=== PATIENT | female | born 1985 | race Caucasian/White ===

== ENCOUNTER → 2020-07-06 07:48 | Outpatient (CLI) | payer OTHER, SELFPAY ==
--- NOTE | ~2020-07-06 | MM_ITS ---
EXAMINATION: MM screening mily BI w vikas HISTORY: Screening mammogram TECHNIQUE: Craniocaudal and mediolateral oblique 3-D tomosynthesis images were obtained and synthetic 2-D images were generated. Bilateral rotated lateral cc views. CAD analysis was submitted and interp reted. COMPARISON: No prior mammogram is available for comparison at this institution. BREAST PARENCHYMAL COMPOSITION: The breasts are extremely dense, which lowers the sensitivity of mamm ography. FINDINGS: There is no evidence of suspicious mass, calcification, or architectural distortion to sugg est malignancy in either breast. There has been no suspicious interval change. IMPRESSION: 1. No mammographic evidence of malignancy. 2. Recommend routine screening mammography in one year. BI-RADS Category 1: Negative Reviewed, dictated and finalized at location A.
== END ==
PROVIDERS: PCP Surgery Plastic and Reconstructive Surgery; Visit Provider Nurse Practitioner Obstetrics & Gynecology
DX: Z12.31 Encounter for screening mammogram for malignant neoplasm of breast (principal)
CPT/HCPCS: 77063; 77067

== ENCOUNTER 2020-08-21 02:13 | Outpatient (CLI) | payer OTHER, SELFPAY ==
[2020-08-21 22:41] LABS: SARS-CoV-2 RNA PCR Negative
== END 2020-08-21 02:14 | disposition home or self-care (01) ==
LOC: ANHCOVIDDT 02:14
PROVIDERS: PCP Surgery Plastic and Reconstructive Surgery; Visit Provider Surgery Plastic and Reconstructive Surgery
DX: Z01.818 Encounter for other preprocedural examination (principal); Z20.828 Contact with and (suspected) exposure to other viral communicable diseases
CPT/HCPCS: 87635; C9803; U0003

== ENCOUNTER 2020-08-21 10:31 | Outpatient (CLI) | payer OTHER, SELFPAY ==
--- NOTE | 2020-08-21 10:33 | ECG_ITS ---
Measurements Intervals [place] Rate: 60 P: 33 ND: 131 QRS: 28 QRSD: 146 T: 37 QT: 441 QTc: 443 Interpretive Statements SINUS RHYTHM RIGHT BUNDLE BRANCH BLOCK BASELINE ARTIFACT- I, II, III, AVR, AVL, AVF ABNORMAL ECG Electronically Signed On 08-21-2020 11:34:59 PROJECTS MANAGER by Harjit Rosales D.O.
== END 2020-08-21 10:32 | disposition home or self-care (01) ==
LOC: ANHSURGERY 10:33
PROVIDERS: PCP Family Medicine; Visit Provider Surgery Plastic and Reconstructive Surgery
DX: Z01.818 Encounter for other preprocedural examination (principal); L57.4 Cutis laxa senilis; I45.10 Unspecified right bundle-branch block
CPT/HCPCS: 93005

== ENCOUNTER 2020-08-24 00:34 | Day surgery (SDC) | payer OTHER, SELFPAY ==
[2020-08-16 14:20] VITALS: BMI 23.4
--- NOTE | 2020-08-23 14:53 | WPDANESEPPF ---
Anes - Initial Pre Proc Eval Procedure: Operation Date: 08/24/20 12:30 Proposed Procedures p Bilateral Breast Augmentation - Ajith Woodard MD s Abdominoplasty - Ajith Woodard MD Date/Time: 08/23/20 14:53 Surgeon: Ajith Woodard MD Pre Op Diagnosis: micromastia, skin laxity Patient Data Age: 35 Gender: F Height: 5 ft 9 in Weight: 72 kg Allergies Allergy/AdvReac Type Severity Reaction Status Date / Time No Known Allergies Allergy Verified 07/18/20 15:34 Home Medications Medication Instructions Recorded Confirmed Type albuterol sulfate 90 mcg/actuation 1 inhalation INHALATION Q4H PRN #8 12/09/19 08/16/20 Rx aerosol inhaler gm carisoprodol 350 mg tablet 350 mg PO TID PRN #21 tablet 08/09/20 08/16/20 Rx docusate sodium 100 mg capsule 100 mg PO DAILY #14 cap 08/09/20 08/16/20 Rx ondansetron HCl 4 mg tablet 4 mg PO Q8H #28 tablet 08/09/20 08/16/20 Rx oxycodone-acetaminophen 5 mg-325 1 tablet PO Q6H PRN #15 tablet 08/09/20 08/16/20 Rx mg tablet PMFSH Past Medical History Medical History Depression Unspecified asthma Wellness examination Surgical History Surgical History Status post bilateral salpingectomy Family History Family History Grandparent Family history of malignant neoplasm of breast Father Diabetes mellitus Hypertension Other Cerebrovascular accident Malignant neoplasm of prostate Social History Social History Smoking status: Never smoker Second hand tobacco smoke exposure: No Alcohol intake: current Drinks per week: 7 Substance use: never Substance use type: does not use Gender identity (if verbalized by the patient): Female Spiritual care concerns: No Anes - Eval Final PreProcedure Day of Procedure 08/23/20 14:53 Informed Consent: The patient's anesthetic plan and its attendant risks and benefits were discussed with the patient/family/POA. Questions were solicited and answers provided to the satisfaction of the patient/family/POA.
[2020-08-24] VITALS (12 sets, daily range): BP systolic 110–129; BP diastolic 67–95; PULSE 67–93; RESP 14–20; TEMP 36.1–36.7; O2SAT 96–100
[2020-08-24] MEDS: LACTATED RINGERS 1,000 ML 30 ML IV CONT ×2 (11:10→16:23)
[2020-08-24 11:13] LABS: Urine Cotinine NEGATIVE
[2020-08-24 11:29] LABS: Hematocrit 41.1 % (37.0-47.0); Hemoglobin 13.8 g/dL (12.0-15.0)
--- NOTE | 2020-08-24 12:18 | WPDANESEPPF ---
Anes - Initial Pre Proc Eval Procedure: Operation Date: 08/24/20 12:30 Proposed Procedures p Bilateral Breast Augmentation - Ajith Woodard MD s Abdominoplasty - Ajith Woodard MD Date/Time: 08/24/20 12:18 Surgeon: Ajith Woodard MD Pre Op Diagnosis: micromastia, skin laxity Patient Data Age: 35 Gender: F Height: 1.75 m Weight: 73.6 kg Last Vital Signs Temp 36.7 C 08/24/20 10:44 Pulse 67 08/24/20 10:44 Resp 20 08/24/20 10:44 BP 121/67 08/24/20 10:44 Pulse Ox 98 08/24/20 10:44 Allergies Allergy/AdvReac Type Severity Reaction Status Date / Time No Known Allergies Allergy Verified 08/24/20 11:27 Home Medications Medication Instructions Recorded Confirmed Type albuterol sulfate 90 mcg/actuation 1 inhalation INHALATION Q4H PRN #8 12/09/19 08/16/20 Rx aerosol inhaler gm carisoprodol 350 mg tablet 350 mg PO TID PRN #21 tablet 08/09/20 08/16/20 Rx docusate sodium 100 mg capsule 100 mg PO DAILY #14 cap 08/09/20 08/16/20 Rx ondansetron HCl 4 mg tablet 4 mg PO Q8H #28 tablet 08/09/20 08/16/20 Rx oxycodone-acetaminophen 5 mg-325 1 tablet PO Q6H PRN #15 tablet 08/09/20 08/16/20 Rx mg tablet Laboratory Tests 08/24/20 08/24/20 10:43 10:43 Hgb 13.8 g/dL g/dL (12.0-15.0) Hct 41.1 % % (37.0-47.0) Cotinine Negative Patient hx anesthesia problems: none Family hx anesthesia problems: none PMFSH Past Medical History Medical History Depression Unspecified asthma Wellness examination Surgical History Surgical History Status post bilateral salpingectomy Family History Family History Grandparent Family history of malignant neoplasm of breast Father Diabetes mellitus Hypertension Other Cerebrovascular accident Malignant neoplasm of prostate Social History Social History Smoking status: Never smoker Second hand tobacco smoke exposure: No Alcohol intake: current Drinks per week: 7 Substance use: never Substance use type: does not use Living arrangements: with family Gender identity (if verbalized by the patient): Female Spiritual care concerns: No Anes - Eval Final PreProcedure Day of Procedure 08/24/20 12:18 Patient weight: normal Heart: regular rate and rhythm Lungs: clear to auscultation and normal air movement Airway: Mallampati scale class II Neurological: alert and oriented Last oral intake: >/= 8 hours ASA classification: II Emergent: no Anesthetic plan: proceed Anesthesia type and monitoring: general ETT and standard monitoring Informed Consent: The patient's anesthetic plan and its attendant risks and benefits were discussed with the patient/family/POA. Questions were solicited and answers provided to the satisfaction of the patient/family/POA.
--- NOTE | 2020-08-24 12:21 | WPDHPUPDATE1 ---
History and Physical Update Update Date/Time: 08/24/20 12:21 History and Physical has been reviewed, including an updated exam of the patient. There are NO changes in the patient's condition. Risks, benefits, and alternatives have been discussed and questions answered. Patient agrees to proceed with procedure.
--- NOTE | 2020-08-24 12:51 | PM.PROC ---
Procedure Note - Detailed Date of procedure: 08/24/20 Pre-op diagnosis: micromastia, skin laxity Post-op diagnosis: same Procedure performed: 1. Bilateral augmentation mammaplasty 2. Progressive tension abdominoplasty Description of procedure: She is here today for the above. Previously and again today the risks, benefits, alternatives were discussed in extensive detail. I wanted her to be very realistic about the risks involved as well as expectations. We discussed aftercare and what to monitor for. We discussed DVT/PE risks and management. Made sure answered all of her questions to her satisfaction today and consent was obtained. Marked in the preoperative holding area with their verification. The patient was taken to the operating room placed supine on the operating table. Anesthesia was provided by anesthesiology. A surgical time-out was taken. We cleansed the skin and 1% lidocaine and 0.25% Marcaine with epinephrine was used anesthetize as a field block. She was prepped and draped in a standard sterile fashion. Tegaderm nipple Au were placed. A 15 blade used to make an incision along the inframammary fold. Dissection was continued at 45 degree angle until the chest wall as identified. I incised the pectoralis major along its inferior border and completely released the inferior border leaving the medial border intact. I created a subpectoral pocket in the appropriate dimensions based on our preoperative planning for the implant. I then copiously irrigated with saline solution and verified a strict hemostasis. Next the use a triple antibiotic and Betadine containing solution to irrigate the pocket. I washed my gloves with the triple antibiotic and Betadine solution. We washed the implant immediately upon opening it with this solution and only opened it when we needed it. I used implant funnel and no-touch technique. The implant was introduced into the pocket using the funnel. Having verified positioning of the implant this was closed using 2-0 Vicryl followed by 3-0 Monocryl in a running subcuticular 4-0 Monocryl followed by tissue glue. I then proceeded with the abdominoplasty. I placed the patient in a flexed position to verify the upper and lower markings would reach. I then placed her supine. A thorough abdominal examination was completed. Stab incisions were made and used tumescent solution. A 10 blade was used to make the upper incision. I continued dissection down to the level of fascia. Elevated just what was necessary for repair of the diastasis and discontinuous undermining otherwise. I then again flexed the bed to verify the upper skin flap would reach the lower markings without tension. Once verified I placed her supine once again and a 10 blade used to make the lower incision. I elevated up to level the umbilicus and left the umbilicus intact on a well-vascularized stalk. The intervening tissue was removed. A 2 mm blunt cannula and Exparel which was mixed 20 cc in 100 cc for a total volume of 120 cc I injected deep to the fascia bilaterally as well as along the incision lines. I plicated the diastasis recti using [id number] 0 PDS followed by a V lock PDS as a 2nd layer of reinforcement. This was in 2 separate layers using 2 separate sutures as well. I repaired around the umbilicus leaving plenty of room for well-vascularized stalk of the umbilicus with 2-0 PDS. The patient was flexed and starting from superior to inferior began plication using 2-0 Vicryl to obliterate all space in a standard progressive tension fashion. At the umbilicus I marked out the location of the skin and inset this with 3-0 Monocryl and 4-0 nylon. I continued the remainder of the plication using 2-0 Vicryl until I reached my lower planned scar line. I trimmed any excess skin of the upper flap making sure this was a tension-free closure. I then approximated using a 3 point suture with 2-0 Vicryl followed by 3-0 stratafix ,running subcu
[2020-08-24] MEDS: ceFAZolin 2 GM/D5W 50 ML 2 GM/50 ML BAG IVPB (13:13)
[2020-08-24] MEDS: LIDO 1%/EPINEPHRINE 1:100,000 20 ML VIAL 30 ML INFILTRATE (13:27)
--- NOTE | 2020-08-24 15:21 | SUR.OPER ---
Pharmacy Antibiotic Irrigation 1000ml NS irrgation bottle/NDC 7671-5269-59, lot [id number], exp [id number] Implants soaked in solution prior to insertion and immediate when to sterile field. Bilateral breast implants [facility] [employer] Soft[employer]. right/SN [id number], Exp 2023-12-05 Lot [id number] left/SN [id number], Exp 2024-01-06, Lot [id number].
--- NOTE | 2020-08-24 16:28 | SUR.OPER ---
to pacu in flexed position with pillow under knees. sign on bed to keep in this position.
[2020-08-24] MEDS: fentaNYL CITRATE INJ (*CRX) 100 MCG/2 ML VIAL 25 MCG IV PUSH ×8 (16:36→17:07)
[2020-08-24] MEDS: ONDANSETRON INJ 4 MG/2 ML VIAL IV PUSH (17:12)
[2020-08-24] MEDS: DOCUSATE SODIUM 100 MG CAPSULE PO (19:32)
[2020-08-24] MEDS: carisoprodoL (*CRX) 350 MG TABLET PO (19:32)
[2020-08-24] MEDS: oxyCODONE/ACETAMINOPHEN (*CRX) 5-325 MG TABLET PO (20:10)
[2020-08-25] VITALS: BP 116/82; PULSE 72; RESP 18; TEMP 36.6; O2SAT 97
[2020-08-25] MEDS: carisoprodoL (*CRX) 350 MG TABLET PO ×3 (01:22→11:55)
[2020-08-25] MEDS: oxyCODONE/ACETAMINOPHEN (*CRX) 5-325 MG TABLET PO ×2 (01:22→07:57)
[2020-08-25 04:50] VITALS: BP 104/69; PULSE 92; RESP 18; TEMP 36.5; O2SAT 95
[2020-08-25 04:55] LABS: Mean Platelet Volume 10.7 fl (7.4-10.4); Platelet Count Result 206 k/mm3 (150-375)
[2020-08-25 05:05] LABS: Estimated CRCL calculation 99 ml/min; Estimated Glomerular Filt Rate > 60
[2020-08-25] MEDS: DOCUSATE SODIUM 100 MG CAPSULE PO (07:58)
[2020-08-25] MEDS: ENOXAPARIN 40 MG/0.4 ML SYRINGE SUB-Q (07:59)
[2020-08-25 08:25] VITALS: BP 125/81; PULSE 92; RESP 18; TEMP 37.1; O2SAT 100
--- NOTE | 2020-08-25 08:52 | WPDPN ---
Progress Note: A&P Assessment and Plan (1) Micromastia: Code(s): N64.82 - Hypoplasia of breast Status: Acute Assessment and Plan: She is doing very well after bilateral augmentation mammoplasty and progressive tension abdominoplasty. Will discharge home. Today we had an extensive conversation for more than 20 minutes going over the care afterwards. What monitor for. Discussed activity limitations. I will see her back next week. She understands to call with any questions or concerns. (2) Skin laxity: Code(s): L57.4 - Cutis laxa senilis Status: Acute Assessment and Plan: As above Time Spent With Patient Time with patient: 15 - 25 minutes Review of Systems Review of Systems: All systems reviewed & are unremarkable except as noted in HPI and below Exam Narrative: Exam Narrative: Bilateral breasts are soft. No signs of infection. No hematoma. No seroma. Good color and capillary refill. Abdomen is healing well. No signs of infection. No hematoma. No seroma. Good color and capillary refill. No calf tenderness. Negative Homans. Const: General: comfortable, no acute distress, alert and awake; No acute distress Orientation/consciousness: oriented to person HENMT: Head: normal to inspection Ears: external ears normal General nose exam: Normal external nose present Face and sinus: normal facial exam Eyes: General: appearance normal, both eyes and all related structures Periorbital: periorbital findings normal Eyelids: eyelids normal Conjunctivae: conjunctivae normal Neck: Neck: normal visual inspection Chest: Chest palpation & inspection: normal inspection of the chest Resp: Effort & Inspection: normal respiratory effort and able to speak in complete sentences GI: Inspection: normal to inspection Neuro: General: oriented to person Psych: Appearance: grossly normal Mental Status: mental status grossly normal Objective Data Vital Signs Vital Signs: Vital Signs - 24 hr 08/24/20 10:44 08/24/20 16:23 08/24/20 16:35 Temperature 36.7 C 36.1 C L Pulse Rate 67 90 93 Respiratory Rate 20 20 20 Blood Pressure 121/67 124/91 H 126/86 Pulse Oximetry 98 100 100 08/24/20 16:41 08/24/20 16:50 08/24/20 17:05 Temperature Pulse Rate 83 88 Respiratory Rate 14 18 Blood Pressure 128/90 129/95 H Pulse Oximetry 100 99 97 08/24/20 17:20 08/24/20 18:15 08/24/20 18:30 Temperature Pulse Rate 78 76 82 Respiratory Rate 16 Blood Pressure 123/73 110/83 120/81 Pulse Oximetry 96 99 97 08/24/20 19:00 08/24/20 20:00 08/24/20 21:00 Temperature 36.7 C 36.6 C Pulse Rate 69 81 68 Respiratory Rate 18 18 Blood Pressure 122/90 125/94 H 125/85 Pulse Oximetry 99 99 99 08/25/20 00:00 08/25/20 04:50 Temperature 36.6 C 36.5 C Pulse Rate 72 92 Respiratory Rate 18 18 Blood Pressure 116/82 104/69 Pulse Oximetry 97 95 Intake/Output Intake/Output: Intake & Output 08/22/20 08/23/20 08/24/20 08/25/20 23:59 23:59 23:59 23:59 Intake Total 250 2700 Output Total 4150 Balance 250 -1450 Meds/Results Medications: Active Medications Generic Name Dose Route Start Last Admin Trade Name Freq PRN Reason Stop Dose Admin Albuterol 1 puff 08/24/20 17:25 Albuterol Sulfate (*Sp) Aerosol 1 Puff INHALATION Q4H PRN shortness of breath or wheezing Carisoprodol 350 mg 08/24/20 18:00 08/25/20 06:00 Carisoprodol (*Crx) 350 Mg Tablet PO 350 mg Q6HR DANIEL Administration Docusate Sodium 100 mg 08/24/20 21:00 08/25/20 07:58 Docusate Sodium 100 Mg Capsule PO 100 mg Q12HR DANIEL Administration Enoxaparin Sodium 40 mg 08/25/20 09:00 08/25/20 07:59 Enoxaparin 40 Mg/0.4 Ml Syringe SUB-Q 40 mg DAILY DANIEL Administration Lactated Ringer's 1,000 mls @ 125 mls/hr 08/24/20 16:20 Lr - Lactated Ringers Iv IV CONT .Q8H DANIEL Morphine Sulfate 2 mg 08/24/20 16:17 Morphine Sulfate (*Crx) 2 Mg/Ml Inj IV PUSH Q2H PRN
--- NOTE | 2020-08-25 08:54 | PM.DS ---
DS: Admitting Diagnosis Admitting Diagnosis Admitting Diagnosis: Micromastia Skin laxity DS: Discharge Diagnosis Discharge Diagnosis (1) Micromastia: Code(s): N64.82 - Hypoplasia of breast Status: Acute (2) Skin laxity: Code(s): L57.4 - Cutis laxa senilis Status: Acute DS: Summary Hospital Course Hospital Course: She underwent bilateral augmentation mammoplasty and progressive tension abdominoplasty. Postoperatively she has done well. Kept her overnight for pain controlled. Will discharge home today. Time Spent with Patient Time attestation: Total time spent providing and/or coordinating discharge services: 20 minutes Exam Narrative: Exam Narrative: Bilateral breasts are soft. No signs of infection. No hematoma. No seroma. Good color and capillary refill. Abdomen is healing well. No signs of infection. No hematoma. No seroma. Good color and capillary refill. No calf tenderness. Negative Homans. Const: General: comfortable, no acute distress, alert and awake; No acute distress Orientation/consciousness: oriented to person HENMT: Head: normal to inspection Ears: external ears normal General nose exam: Normal external nose present Face and sinus: normal facial exam Eyes: General: appearance normal, both eyes and all related structures Periorbital: periorbital findings normal Eyelids: eyelids normal Conjunctivae: conjunctivae normal Neck: Neck: normal visual inspection Chest: Chest palpation & inspection: normal inspection of the chest Resp: Effort & Inspection: normal respiratory effort and able to speak in complete sentences GI: Inspection: normal to inspection Neuro: General: oriented to person Psych: Appearance: grossly normal Mental Status: mental status grossly normal DS: Data Data Completed and Pending Labs on day of discharge: Labs from last 24 hours 08/25/20 08/25/20 08/24/20 04:09 04:09 10:43 Hgb Hct Plt Count 206 MPV 10.7 H Creatinine 0.70 Estim Creat Clear Calc 99 Estimated GFR > 60 Cotinine Negative 08/24/20 10:43 Hgb 13.8 Hct 41.1 Plt Count MPV Creatinine Estim Creat Clear Calc Estimated GFR Cotinine Discharge Plan Discharge Patient Disposition: Home, Self-Care Discharge Instructions: POST OPERATIVE DISCHARGE INSTRUCTIONS FOR Breast Augmentation Abdominoplasty AJITH WOODARD M.D. [facility] [place] [address] [address] driving for 24 hours after anesthesia and while you are taking pain medication. Take all prescribed medication as directed Diet as tolerated. No lifting or activity that raises blood pressure for 48 hours. No lifting more than 20 pounds or straining for 6 weeks. Slowly stand up straight as tolerated over the week. Regular walking / ambulation. No showering until directed to. Once you shower do not take pain medication before showering as the combination of medication and heat may cause you to feel dizzy or pass out. No pools or tubs for 2 weeks. Call with any questions or concerns. Dressing Care: May shower. If you have any questions or concerns, please call the office . If it is after hours you will be directed to the offshore wind operations manager exchange. Shortness of breath, chest pain, or other medical emergency dial 911 / proceed to the Emergency Room. Stand Alone Forms: General Discharge Instructions Follow-up/Referrals: Ajith Woodard MD [Physician] - Other (08/29/2020) Discharge Medications: Continued ondansetron HCl [Zofran] 4 mg tablet 4 mg PO Q8H Qty: 28 RF: 0 docusate sodium [Colace] 100 mg capsule 100 mg PO DAILY Qty: 14 RF: 0 carisoprodol [Soma] 350 mg tablet 350 mg PO TID PRN (Reason: muscle pain) Qty: 21 RF: 0 oxycodone-acetaminophen [Percocet] 5-325 mg tablet 1 tablet PO Q6H PRN (Reason: pain) Qty: 15 RF: 0 albuterol sulfate 90 mcg/actuation H
[2020-08-25] MEDS: IBUPROFEN 600 MG TABLET PO (10:58)
--- NOTE | 2020-08-25 11:22 | WPDANESPN ---
Anes - Prog Note Post-Op Date/Time: 08/25/20 11:22 Cardiovascular status: normal Respiratory status: normal Airway patency: baseline Mental status: baseline Post-Op hydration status: normal Vital Signs: Last Vital Signs Temp 36.5 C 08/25/20 04:50 Pulse 92 08/25/20 04:50 Resp 18 08/25/20 04:50 BP 104/69 08/25/20 04:50 Pulse Ox 95 08/25/20 04:50 Pain Score (VAS): 10 I/O: Intake & Output 08/24/20 08/25/20 08/25/20 23:59 07:59 15:59 Intake Total 100 2700 Output Total 3850 300 Balance 100 -1150 -300 Laboratory Tests 08/25/20 04:09 08/25/20 04:09 08/24/20 08/25/20 08/25/20 10:43 04:09 04:09 Hgb 13.8 Hct 41.1 Plt Count 206 MPV 10.7 H Creatinine 0.70 Estim Creat Clear Calc 99 Estimated GFR > 60 Post-procedural complaints: none Patient Feedback: Patient satisfied with anesthetic care.
== END 2020-08-25 13:21 | disposition home or self-care (01) ==
LOC: ANHSURGERY 12:59 → ANHOB2 17:28
PROVIDERS: Anesthesiology; PCP Family Medicine; Visit Provider Surgery Plastic and Reconstructive Surgery
PROC: (CPT 19325; principal; 2020-08-24 12:30)
PROC: (CPT 19325; 2020-08-24 12:30)
DX: Z41.1 Encounter for cosmetic surgery (principal); N64.82 Hypoplasia of breast; L57.4 Cutis laxa senilis; Z79.51 Long term (current) use of inhaled steroids; F32.9 Major depressive disorder, single episode, unspecified; J45.909 Unspecified asthma, uncomplicated
CPT/HCPCS: 19325; 15830; 15847; 36415; 80307; 82565; 85014; 85018; 85049; 99199; A9270; C9290; J0131; J0171; J0330; J0690; J1100; J1170; J1580; J1650; J2250; J2370; J2405; J2704; J3010; J7120

== ENCOUNTER → 2022-05-02 11:48 | Outpatient (CLI) | payer OTHER, SELFPAY ==
--- NOTE | ~2022-05-02 | CT_ITS ---
EXAMINATION: CT abdomen pelvis wo con DATE: 05/02/2022 12:05 INDICATION: Kidney stone. Left-sided low back pain. TECHNIQUE: Computed tomography (CT) of the abdomen and pelvis was performed without intravenous contr ast. Automated exposure control and iterative reconstruction technique were employed. The dose-length product was 490.04 mGy-cm. COMPARISON: None. FINDINGS: The visualized portions of the lung bases are clear without pneumonia or pleural effusion. The heart size is normal. No pericardial effusion. Breast implants are noted. There is a 6 mm cyst in the liver. The gallbladder, spleen, pancreas, adrenal glands, and kidneys are normal. There is no ur olithiasis. There are no dilated loops of bowel. The appendix is normal. There are no pathologically enlarged lymph nodes. There is no free intraperitoneal fluid. There is mild lumbar spondylosis. IMPRESSION: 1. No urolithiasis. Reviewed, dictated and finalized at location A. IMPRESSION: 1. No urolithiasis.
== END ==
PROVIDERS: PCP Family Medicine; Visit Provider Nurse Practitioner Family
DX: R10.9 Unspecified abdominal pain (principal); R31.9 Hematuria, unspecified
CPT/HCPCS: 74176

== ENCOUNTER → 2022-10-14 15:47 | Outpatient (CLI) | payer OTHER, SELFPAY ==
--- NOTE | ~2022-10-14 | XR_ITS ---
EXAMINATION: XR abdomen/kub 1V INDICATION: Constipation, unspecified TECHNIQUE: Supine views of the abdomen were obtained on 2 radiographs. COMPARISON: CT, 05/02/2022 FINDINGS: Bowel gas pattern is normal. There are no dilated loops of bowel. No abnormal calcification is identified. There is mild lumbar spondylosis. IMPRESSION: 1. No radiographic correlate for the patient's symptoms. Reviewed, dictated and finalized at location L. RAL SCIENCE CURATOR
== END ==
PROVIDERS: PCP Family Medicine; Visit Provider Family Medicine
DX: K59.00 Constipation, unspecified (principal)
CPT/HCPCS: 74018

== ENCOUNTER → 2023-09-23 15:54 | Outpatient (CLI) | payer OTHER, SELFPAY ==
--- NOTE | ~2023-09-23 | MM_ITS ---
EXAMINATION: MM scrn mily implant BI w vikas HISTORY: Screening mammogram TECHNIQUE: Craniocaudal and mediolateral oblique 3-D tomosynthesis images with implant displacement a nd synthetic 2-D images were generated. Craniocaudal and mediolateral oblique views of the breasts wi thout implant displacement were obtained using full field digital mammography. CAD analysis was submi tted and interpreted. COMPARISON: 07/06/2020 BREAST PARENCHYMAL COMPOSITION: The breasts are extremely dense, which lowers the sensitivity of mamm ography FINDINGS: There are bilateral subpectoral implants. The right breast is stable. There are nodular asy mmetries inferiorly in the left breast on left MLO view. IMPRESSION: 1. Nodular asymmetries inferiorly in the left breast on MLO view. 2. Additional mammographic views and possible breast ultrasound are recommended. BI-RADS Category 0: Incomplete: Needs additional imaging evaluation. Reviewed, dictated and finalized at location A. GREASER IMPRESSION: 1. Nodular asymmetries inferiorly in the left breast on MLO view. 2. Additional mammographic views and possible breast ultrasound are recommended . BI-RADS Category 0: Incomplete: Needs additional imaging evaluation.
== END ==
PROVIDERS: PCP Nurse Practitioner; Visit Provider Nurse Practitioner
DX: Z12.31 Encounter for screening mammogram for malignant neoplasm of breast (principal); R92.8 Other abnormal and inconclusive findings on diagnostic imaging of breast
CPT/HCPCS: 77063; 77067

== ENCOUNTER → 2023-10-27 08:19 | Outpatient (CLI) | payer OTHER, SELFPAY ==
--- NOTE | ~2023-10-27 | MMUS_ITS ---
EXAMINATION: MM diag mily implant LT w vikas, US breast LT complete HISTORY: Follow-up left breast asymmetry TECHNIQUE: Additional 3-D tomosynthesis images of the left breast were performed and synthetic 2-D im ages were generated. CAD analysis was submitted and interpreted. High resolution complete left breast ultrasound was performed. COMPARISON: 09/23/2023 BREAST PARENCHYMAL COMPOSITION: Dense: The breasts are extremely dense, which lowers the sensitivity of mammography. FINDINGS: MAMMOGRAPHIC FINDINGS: Focal asymmetry is less apparent with spot compression and mediolateral views. No discrete mass or ar chitectural distortion. There are no suspicious calcifications. There is a left breast implant. ULTRASOUND: Complete US of all 4 quadrants of the left breast and retroareolar region was reviewed. At 3:00, 3 cm from the nipple, there is a 7 mm cyst. At 11:00, 3 cm from the nipple there is a 6 mm cyst. No suspi cious masses to suggest malignancy. IMPRESSION: 1. No evidence for malignancy in the left breast. Benign finding. 2. Routine yearly screening mammogram and regular clinical breast examination are recommended. BI-RADS Category 2: Benign finding(s). Reviewed, dictated and finalized at location A. IUM CANCELLATION CLERK IMPRESSION: 1. No evidence for malignancy in the left breast. Benign finding. 2. Routine yearly screening mammogram and regular clinical breast examination a re recommended. BI-RADS Category 2: Benign finding(s).
== END ==
PROVIDERS: PCP Nurse Practitioner; Visit Provider Nurse Practitioner
DX: R92.2 Inconclusive mammogram (principal)
CPT/HCPCS: 76641; 77061; 77065; G0279

== ENCOUNTER 2024-12-19 08:58 | Outpatient (CLI) | payer OTHER, SELFPAY ==
--- NOTE | ~2024-12-19 | MM_ITS ---
EXAMINATION: MM scrn mily implant BI w vikas HISTORY: Screening mammogram TECHNIQUE: Craniocaudal and mediolateral oblique 3-D tomosynthesis images with implant displacement a nd synthetic 2-D images were generated. Craniocaudal and mediolateral oblique views of the breasts wi thout implant displacement were obtained using full field digital mammography. CAD analysis was submi tted and interpreted. COMPARISON: Comparison to multiple prior studies sequentially, with oldest reviewed study dated 09/23. BREAST PARENCHYMAL COMPOSITION: Dense: The breasts are extremely dense, which lowers the sensitivity of mammography. FINDINGS: There is no evidence of suspicious mass, calcification, or architectural distortion to sugg est malignancy in either breast. There has been no suspicious interval change. IMPRESSION: 1. No mammographic evidence of malignancy. 2. Recommend routine screening mammography in one year. BI-RADS Category 1: Negative Reviewed, dictated and finalized at location B.
== END 2024-12-19 08:59 | disposition home or self-care (01) ==
LOC: MICIMG 08:58
PROVIDERS: PCP Family Medicine; Visit Provider Nurse Practitioner
DX: Z12.31 Encounter for screening mammogram for malignant neoplasm of breast (principal)
CPT/HCPCS: 77063; 77067